=== PATIENT | female | born 1970 | race Caucasian/White ===

== ENCOUNTER 2022-01-10 12:41 | Emergency (ER) | payer OTHER, BC ==
[~2022-01-10] VITALS: Ht 182.9 cm; Wt 113.0 kg
--- NOTE | 2022-01-10 13:15 | NUR ---
JALEESA CALLED TO NOTIFIE OF A PT HERE FOR A SART EXAM. PT NOTIFIED [employer] AND OFFICER JUNO TOOK THE REPORT. JALEESA NOTIFIED THAT WE NEEDED AN APPROVAL FOR A SART KIT. WAS TOLD THAT OFFICER JUNO WILL BE NOTIFIED.
--- NOTE | 2022-01-10 14:50 | NUR ---
JALEESA CALLED INQUIRING ABOUT NOTIFICATION FROM OFFICER JUNO FOR SART KIT APPROVAL. OFFICER JUNO WILL BE CONTACTED BY JALEESA AGAIN TO CALL IN SART APPROVAL Addendum: 01/10/22 at 1459 by VERNELL [address] HAS BEEN CALLED FOR PT ADVACATE
--- NOTE | 2022-01-10 15:36 | NUR ---
PT BROUGHT BACK TO [facility], ADVOCATE FROM [facility] IS WITH PT NO APPROVAL FOR SART KIT HAS BEEN RECIEVED OF YET
--- NOTE | 2022-01-10 16:01 | NUR ---
DR VASQUEZ CALLED REGARDING SART EXAM. INFORMED THAT WE HAVE NOT RECEIVED APPROVAL FROM [facility] OF THIS TIME. DR VASQUEZ ADVISED TO GO AHEAD WITH THE SART EXAM, HAVE PT SIGN CONSENT ON BOTH #923 AND #924 FORM. SHOULD THERE BE NO APPROVAL FOR SART EXAM, AVILA RN IS TO USE #924 FORM. IF PT WISHES TO HAVE LAW ENFORCEMENT INVOLVED, MAKE SURE PT DOES NOT SIGN #4 ON CONCENT FORM. AVILA CARVALHO RN, CALLED AND NOTIFIED OF SART EXAM Addendum: 01/10/22 at 1614 by VERNELL Vern MIRANDA; [id number], CALLED AND APPROVED THE SART KIT AND WILL COME BY TO SIGN THE CONSENT.
[2022-01-10] MEDS ORDERED: ketorolac trometh. 30mg/ml inj. IM ONE (16:35)
[2022-01-10] MEDS ORDERED: ORPH100T2 PO (16:39)
[2022-01-10] MEDS ORDERED: OXYC-150 PO (16:39)
[2022-01-10] MEDS ORDERED: ondansetron 4mg rapidly disintigrating tab PO ONE (20:20)
[2022-01-10] MEDS ORDERED: metroNIDAZOLE 500mg tablet PO ONE (20:20)
--- NOTE | 2022-01-10 20:51 | NUR ---
AVILA MARTINEZ arrived to hospital at 1630. RN introduced herself to patient and brought to exam room for medical-forensic examination. [facility] advocates were present upon arrival and remained at bedside for duration of the exam. Please see scanned medical-forensic examination for details of examination. Case # [id number] with [place] [employer]. Patient was seen at another hospital prior to coming to [facility]. The other hospital gave patient medication for STD/STI prophylaxis but was unable to preform a medical-forensic examination due to lack of resourced. I preformed the examination on the patient which lasted from [id number]. Advocates arranged a motel for the patient for the night and patient plans on returning home in the morning when she rests. Patient declined to shower at the hospital and plans to shower at the motel. All medical concerns were addressed by attending physicians.
[2022-01-10 20:56] VITALS: BP 134/87
== END 2022-01-10 20:30 | disposition home or self-care (01) ==
LOC: EEVIPCON 12:42 → ER 12:42
DX: T74.21XA Adult sexual abuse, confirmed, initial encounter (principal); S16.1XXA Strain of muscle, fascia and tendon at neck level, initial encounter; S30.1XXA Contusion of abdominal wall, initial encounter; S50.811A Abrasion of right forearm, initial encounter; R42 Dizziness and giddiness; G43.909 Migraine, unspecified, not intractable, without status migrainosus; G89.29 Other chronic pain; F17.200 Nicotine dependence, unspecified, uncomplicated; Z72.89 Other problems related to lifestyle; Z86.2 Personal history of diseases of the blood and blood-forming organs and certain disorders involving the immune mechanism; Z79.899 Other long term (current) drug therapy; X58.XXXA Exposure to other specified factors, initial encounter; Y93.89 Activity, other specified; Y92.89 Other specified places as the place of occurrence of the external cause; Y99.8 Other external cause status
CPT/HCPCS: 96372; 99284; J1885; 99283